=== PATIENT | female | born 1980 | race American Indian/Alaskan Native ===

== ENCOUNTER 2016-12-15 08:55 | Day surgery (SDC) | payer MEDICARE, OTHER ==
[2016-12-11 15:02] VITALS: BMI 28.1
[2016-12-15] MEDS ORDERED: Midazolam 2 MG/2 ML VIAL ONE (12:43)
[2016-12-15] MEDS ORDERED: Absorbable Gelatin Sponge Size 12-7 ONE (12:55)
[2016-12-15] MEDS ORDERED: Propofol 10 mg/ml Inj (20 ML) ONE (12:57)
[2016-12-15] MEDS ORDERED: Lidocaine 2% Inj (20ml) ONE (12:57)
--- NOTE | 2016-12-15 13:11 | CP.SDSHP ---
Same Day Surgery H & P - History Proposed Procedure: US guided renal biopsy. Pre-Op Diagnosis: Lupus - Allergies Allergies: Allergies Iodinated Contrast Media - Oral and Allergy (Intermediate, Verified 12/14/16 10: 48) RASH azithromycin Allergy (Verified 04/08/16 12:08) ITCHING HIVES codeine Allergy (Verified 04/08/16 12:08) ITCHING HIVES ondansetron HCl [From Zofran (as hydrochloride)] Allergy (Verified 04/08/16 12: 08) ITCHING HIVES iv contrast Adverse Reaction (Unknown, Uncoded 04/08/16 12:08) ITCHING DECREASE IN KIDNEY FUNCTION PER PT - Physical Exam Vital Signs: Vital Signs 12/15/16 09:20 Temperature 97.7 F Pulse Rate 73 Respiratory 18 Rate Blood Pressure 163/90 H O2 Sat by Pulse 100 Oximetry Mental Status: Alert & Oriented x3 Neuro: WNL Heart: WNL - Impression Impression: Pt with lupus and renal insufficiency referred for renal biopsy. Plan US guided renal biopsy. Informed consent obtained. Risk of bleeding discussed with the patient. Pt. Evaluated Today:Candidate for Anesthesia & Procedure: Yes (ASA 3 Malampati 3) - Date & Time Date: 12/15/16 Time: 12:45 Short Stay Discharge - Short Stay Discharge Admitting Diagnosis/Reason for Visit: RENAL MASS Disposition: HOME/ ROUTINE
[2016-12-15] MEDS ORDERED: Oxycodone/Acetaminophen 5/325 mg Tab PO PRN (13:13)
--- NOTE | 2016-12-15 13:13 | PCM.SURG1 ---
Surgeon's Initial Post Op Note - Surgeon's Notes Surgeon: Kendell Elliott Furnace Mechanic Helper: NOne Type of Anesthesia: IV Sedation Pre-Operative Diagnosis: SLE Operative Findings: Slightly echogenic right and left kidney. Right kidney suitable for US biopsy. Post-Operative Diagnosis: SLE Operation Performed: US guided core biopsy of the right lower pole. Five 18 g core specimen obtained. Biopsy tract embolized w gelfoam. Specimen/Specimens Removed: 18 g core x 5 Estimated Blood Loss: EBL {In ML}: 0 Blood Products Given: N/A Drains Used: No Drains Post-Op Condition: Fair Date of Surgery/Procedure: 12/15/16 Time of Surgery/Procedure: 13:05
[2016-12-15] MEDS ORDERED: Sodium Chloride 0.9% 500 ML IV ONE (13:26)
[2016-12-15 14:37] VITALS: PULSE 91; RESP 16
--- NOTE | 2016-12-15 14:59 | US ---
PROCEDURE: Date of procedure: 12/15/2046 Procedure: Ultrasound-guided right renal biopsy, CPT 49765 Ultrasound guidance for biopsy, 28521 HISTORY: Systemic lupus and renal insufficiency TECHNIQUE: Following informed consent and procedure time-out, the patient was placed prone on the interventional table and a limited ultrasound showed slightly echogenic right kidney consistent with medical renal disease. There is no hydronephrosis or mass. The intrarenal stone is present measuring 3 millimeters. The patient right back was prepped and draped in the usual sterile fashion. After patient sedated by the anesthesiologist and the skin anesthetized with lidocaine, an 18 gauge core needle was advanced percutaneously towards the lower pole cortex. Upon confirmation of needle position, 5 -18 gauge core specimens were obtained and sent for routine pathology. The biopsy tract was then embolized with Gelfoam. A post biopsy ultrasound showed no hematoma. There were no immediate complications. IMPRESSION: Ultrasound-guided right renal biopsy.
[2016-12-15 15:08] VITALS: BP 155/92; TEMP 97.5; O2SAT 99
== END 2016-12-15 15:15 | disposition home or self-care (01) ==
LOC: C.SPRAD 08:55
PROVIDERS: ATTEND Radiology Vascular & Interventional Radiology
DX: M32.14 Glomerular disease in systemic lupus erythematosus (principal)
CPT/HCPCS: 50200; 76942; 88305; J2250; J3010; J7040

== ENCOUNTER 2017-01-22 10:18 | Inpatient (IN) | payer MEDICARE, OTHER ==
[2017-01-22 10:19] VITALS: BMI 28.1
[2017-01-22] MEDS ORDERED: Sodium Chloride 0.9% 500 ML IV ONE (11:00)
--- NOTE | 2017-01-22 11:06 | C.PDOC ---
History Of Present Illness 36 y/o female, with history c/o pain and swelling to medial aspect of the left thigh. Pt states she has had an abscess in the area for over a week that was drained in emergency department. Patient reports f/u with Dr. Lyon but states area worsened, prompting visit. Denies fever, chills, headache, nausea, vomiting. Time Seen by Provider: 01/22/17 10:44 Chief Complaint (Nursing): Abnormal Skin Integrity History Per: Patient History/Exam Limitations: no limitations Onset/Duration Of Symptoms: Days Current Symptoms Are (Timing): Worse Location Of Injury: Left: Leg Quality Of Symptoms: Painful, Swollen Recent travel outside of the [place]: No Past Medical History Reviewed: Historical Data, Nursing Documentation, Vital Signs Vital Signs: Last Vital Signs Temp 98.2 F 01/25/17 00:00 Pulse 82 01/25/17 00:00 Resp 20 01/25/17 00:00 BP 146/93 H 01/25/17 00:00 Pulse Ox 99 01/25/17 00:00 - Medical History PMH: Anemia, Fractures (ribs), HTN, Hypothyroidism, Kidney Stones, Osteoporosis , Peripheral Edema, Pulmonary Embolism (2007 after hip relacements), Chronic Kidney Disease Surgical History: Endoscopy - [facility] Procedures DRAINAGE OF RECTUM, VIA NATURAL OR ARTIFICIAL OPENING (04/06/16) EXCISION OF RECTUM, VIA NATURAL OR ARTIFICIAL OPENING (04/06/16) EXTRACTION OF BUTTOCK SKIN, EXTERNAL APPROACH (04/06/16) TRANSFER BUTTOCK SKIN, EXTERNAL APPROACH (04/06/16) Family History: States: Unknown Family Hx - Social History Hx Tobacco Use: No Hx Alcohol Use: No Hx Substance Use: No - Immunization History Hx Tetanus Toxoid Vaccination: No Hx Influenza Vaccination: No Hx Pneumococcal Vaccination: No Review Of Systems Except As Marked, All Systems Reviewed And Found Negative. Constitutional: Negative for: Fever, Chills Skin: Positive for: Other (swelling/painful area left inner thigh). Negative for: Rash Neurological: Negative for: Weakness, Numbness Physical Exam - Physical Exam Appears: Non-toxic, No Acute Distress Skin: Warm, Dry Head: Atraumatic, Normacephalic Chest: Symmetrical Cardiovascular: Rhythm Regular Respiratory: Normal Breath Sounds, No Rales, No Rhonchi, No Wheezing Extremity: Normal ROM, Capillary Refill (< 2 sec. ), Other (4 to 6 cm area, round and hard, indurated, with localized tenderness, small incision) Neurological/Psych: Oriented x3, Normal Speech, Normal Cognition, Normal Motor, Normal Sensation ED Course And Treatment - Laboratory Results Result Diagrams: 01/22/17 13:53 01/22/17 13:53 ECG: Interpreted By Me ECG Rhythm: Sinus Rhythm ECG Interpretation: No Acute Changes Rate From EC (BPM) O2 Sat by Pulse Oximetry: 99 (RA) Pulse Ox Interpretation: Normal Medical Decision Making Medical Decision Making: Plan: * EKG * Bloodwork * IVFs * Reassess Progress: Discussed w/ Dr. Lyon, plan to take pt to OR. Disposition Discussed With Dr.: Jomar Avina Doctor Will See Patient In The: Hospital Counseled Patient/Family Regarding: Studies Performed - Disposition Disposition: HOSPITALIZED Disposition Time: 11:04 Condition: GUARDED - Clinical Impression Clinical Impression: Cellulitis, Abscess - Scribe Statement The provider has reviewed the documentation as recorded by the Leti Reilly Provider Carolibe Attestation: All medical record entries made by the Carolibsri were at my direction and personally dictated by me. I have reviewed the chart and agree that the record accurately reflects my personal performance of the history, physical exam, medical decision making, and the department course for this patient. I have also personally directed, reviewed, and agree with the discharge instructions and disposition. Decision To Admit - Pt Status Changed To: Hospital Disposition Of: Inpatient - Admit Certification Admit to Inpatient:: After my assessment, the patient will require hospitalization for at least two midnights. This is because of the severity of symptoms shown, intensity of services needed, and/or the medical risk in this patient being treated as an outpatient. - InPatient: Physician Admission Certification: I certify that this patient requires 2 or more midnights of care for the following reason:: imunocompromised patient with lupus, needs admission for management of celulitis and abscess. - . Bed Request Type: Regular Patient Diagnosis: Cellulitis, Abscess
[2017-01-22 13:57] LABS: BASO % 0.5 % (0.0-2.0); EOS % 0.4 % (0.0-4.0); HEMATOCRIT 37.5 % (34.0-47.0); LYMPH # 2.2 K/uL (1.0-4.3); LYMPH % 25.4 % (20.0-40.0); MEAN CELL VOLUME 82.9 fL (81.0-99.0); MEAN CORPUSCULAR HEMOGLOBIN 25.8 pg (27.0-31.0); MEAN CORPUSCULAR HGB CONC 31.1 g/dL (33.0-37.0); MEAN PLATELET VOLUME 8.6 fL (7.2-11.7); MONO # 1.1 K/uL (0.0-0.8); MONO % 12.3 % (0.0-10.0); NRBC % 0.1 % (0.0-2.0); WHITE BLOOD COUNT 8.6 K/uL (4.8-10.8)
[2017-01-22] MEDS ORDERED: Lactated Ringer's 1,000 ML IV ONE (14:08)
[2017-01-22 14:10] LABS: ALKALINE PHOSPHATASE 48 U/L (38-126); AST/SGOT 35 U/L (14-36); BILIRUBIN,TOTAL 0.5 mg/dL (0.2-1.3); BLOOD UREA NITROGEN 26 mg/dL (7-17); CARBON DIOXIDE 14 mmol/L (22-30); CHLORIDE 114 mmol/L (98-107); GFR AFRICAN-AMERICAN > 60; POTASSIUM 4.2 mmol/L (3.6-5.2); SODIUM 141 mmol/L (132-148); TOTAL PROTEIN 6.4 g/dL (6.3-8.3)
[2017-01-22 14:13] LABS: ALB/GLOB RATIO 0.7 (1.0-2.1); ALT/SGPT 12 U/L (9-52); CALCIUM 7.7 mg/dl (8.6-10.4); GLUCOSE,RANDOM 63 mg/dL (65-105)
[2017-01-22] MEDS ORDERED: HYDROmorphone 0.5 mg/0.5 ml ISec IVP PRN (14:32)
[2017-01-22] MEDS ORDERED: Oxycodone/Acetaminophen 5/325 mg Tab PO PRN (15:09)
--- NOTE | 2017-01-22 15:19 | OP ---
PROCEDURE DATE: 01/22/2017 PREOPERATIVE DIAGNOSES: Infected left groin mass with abscess. POSTOPERATIVE DIAGNOSES: Infected left groin mass with abscess. PROCEDURE PERFORMED: Wide and deep excision of infected left groin mass with drainage of abscess and partial tissue transfer closure. SURGEON: Edgar Lyon MD ANESTHESIA: General. ESTIMATED BLOOD LOSS: 30 mL. POSTOPERATIVE CONDITION: Stable. INDICATIONS FOR SURGERY: This is a 36-year-old female, presents with a recurrent abscess in her left groin and pelvic region, who now will undergo a wide and deep excision of a widely infected mass terry ng with drainage of the abscess underlying. PROCEDURE: The patient taken to the operating room. General anesthesia was administered. She was p laced in lithotomy position. The right groin and thigh and abdominal area were prepped and draped. An elliptical incision was made surrounding the indurated area and the infected mass was excised. Th e underlying pus was drained and cultured. Bleeding was controlled using the Bovie. A bleeding pelv ic blood vessel was repaired. The wound was then irrigated with copious amounts of saline solution, debrided and a partial tissue transfer closure was performed. The central portion of the wound was p acked open with wet saline gauze. The patient tolerated procedure well, returned to recovery room in stable condition. Edgar Lyon MD cc: [id number] TT: 01/22/2017 15:18:50 en
--- NOTE | 2017-01-22 15:19 | CP.PCM.PN ---
Subjective - Date & Time of Evaluation Date of Evaluation: 01/22/17 Time of Evaluation: 16:00 - Subjective Subjective: Medicine Progress Note- Dr. Avina's Service: 36 year old female with PMHx HTN, Hypothyroidism, Kidney Stones, Osteoporosis, Pulmonary Embolism (2006 after hip relacements) admitted today for abscess at medial aspect of the left thigh. Denies chest pain, SOB, fever, chills, headache , nausea, vomiting. Objective - Vital Signs/Intake and Output Vital Signs (last 24 hours): Temp Pulse Resp BP Pulse Ox 98.1 F 104 H 20 130/92 H 100 01/22/17 10:25 01/22/17 12:46 01/22/17 12:46 01/22/17 12:46 01/22/17 12:46 - Medications Medications: Current Medications Enoxaparin Sodium (Lovenox) 30 mg SC DAILY SAHARA Hydromorphone HCl (Dilaudid) 0.5 mg IVP Q15M PRN PRN Reason: Pain, severe (8-10) Stop: 01/22/17 16:32 Ketorolac Tromethamine (Toradol) 30 mg IVP Q6H SAHARA Metoclopramide HCl (Reglan) 10 mg IVP ONCE PRN PRN Reason: Nausea/Vomiting Stop: 01/22/17 16:32 Oxycodone/Acetaminophen (Percocet 5/325 Mg Tab) 2 tab PO Q4H PRN PRN Reason: pain Stop: 01/25/17 15:10 - Labs Labs: 01/22/17 13:53 01/22/17 13:53 - Constitutional Appears: No Acute Distress - Head Exam Head Exam: NORMAL INSPECTION, NORMOCEPHALIC - Eye Exam Eye Exam: EOMI, Normal appearance - ENT Exam ENT Exam: Mucous Membranes Moist - Respiratory Exam Respiratory Exam: Clear to Ausculation Bilateral, NORMAL BREATHING PATTERN - Cardiovascular Exam Cardiovascular Exam: REGULAR RHYTHM, +S1, +S2 - GI/Abdominal Exam GI & Abdominal Exam: Soft. absent: Distended, Tenderness - Extremities Exam Extremities Exam: Full ROM, Normal Inspection - Neurological Exam Neurological Exam: Alert, Awake, Oriented x3 - Psychiatric Exam Psychiatric exam: Normal Affect, Normal Mood - Skin Skin Exam: Erythema Additional comments: swelling area left inner thigh Assessment and Plan (1) Abscess Assessment & Plan: Dr. Lyon consulted- help appreciated. Patient is in the OR at this time. Status: Acute (2) Hypothyroid Assessment & Plan: Synthroid 25 mcg PO daily Status: Acute (3) HTN (hypertension) Assessment & Plan: Lisinopril 2.5 mg PO daily Status: Acute (4) Prophylactic measure Assessment & Plan: Lovenox 30 mg SC daily Pepcid 20 mg PO BID Status: Acute
[2017-01-22] MEDS ORDERED: HYDROmorphone 1 mg/ml ISec ONE ×2 (15:26→15:58)
[2017-01-22] MEDS ORDERED: Lactated Ringer's 1,000 ML IV SCH (15:30)
[2017-01-22] MEDS ORDERED: HYDROmorphone 0.5 mg/0.5 ml ISec IVP ONE ×2 (15:57→15:58)
--- NOTE | 2017-01-22 19:20 | CP.PCM.CON ---
History of Present Illness - History of Present Illness History of Present Illness: 36 y/o female, with history c/o pain and swelling to medial aspect of the left thigh. Pt states she has had an abscess in the left thigh for over a week that was drained in emergency department. Patient reports f/u with Dr. Lyon but states area worsened, prompting visit. Denies fever, chills, headache, nausea, vomiting. - Medical History PMH: Anemia, Fractures (ribs), HTN, Hypothyroidism, Kidney Stones, Osteoporosis , Peripheral Edema, Pulmonary Embolism (2007 after hip relacements), Chronic Kidney Disease Surgical History: Endoscopy Review of Systems - Constitutional Constitutional: As Per HPI - EENT Eyes: absent: As Per HPI, Blind Spots, Blurred Vision, Change in Vision, Decreased Night Vision, Diplopia, Discharge, Dry Eye, Exophthalmos, Floaters, Irritation, Itchy Eyes, Loss of Peripheral Vision, Pain, Photophobia, Requires Corrective Lenses, Sees Flashes, Spots in Vision, Tunnel Vision, Other Visual Disturbances, Loss of Vision, Other Ears: absent: As Per HPI, Decreased Hearing, Ear Discharge, Ear Pain, Tinnitus, Abnormal Hearing, Disequilibrium, Dizziness, Other Nose/Mouth/Throat: absent: As Per HPI, Epistaxis, Nasal Congestion, Nasal Discharge, Nasal Obstruction, Nasal Trauma, Nose Pain, Post Nasal Drip, Sinus Pain, Sinus Pressure, Bleeding Gums, Change in Voice, Dental Pain, Dry Mouth, Dysphagia, Halitosis, Hoarsness, Lip Swelling, Mouth Lesions, Mouth Pain, Odynophagia, Sore Throat, Throat Swelling, Tongue Swelling, Facial Pain, Neck Pain, Neck Mass, Other - Breasts Breasts: absent: As Per HPI, Change in Shape, Mass, Pain, Nipple Discharge, Nipple Inversion, Skin Changes, Swelling, Other - Cardiovascular Cardiovascular: absent: As Per HPI, Acrocyanosis, Chest Pain, Chest Pain at Rest , Chest Pain with Activity, Claudication, Diaphoresis, Dyspnea, Dyspnea on Exertion, Edema, Irregular Heart Rhythm, Pain Radiating to Arm/Neck/Jaw, Leg Edema, Leg Ulcers, Lightheadedness, Orthopnea, Palpitations, Paroxysmal Nocturnal Dyspnea, Pedal Edema, Radiating Pain, Rapid Heart Rate, Slow Heart Rate, Syncope, Other - Respiratory Respiratory: absent: As Per HPI, Cough, Dyspnea, Hemoptysis, Dyspnea on Exertion , Wheezing, Snoring, Stridor, Pain on Inspiration, Chest Congestion, Excessive Mucous Production, Change in Mucous Color, Pain with Coughing, Other - Gastrointestinal Gastrointestinal: absent: As Per HPI, Abdominal Pain, Belching, Bloating, Change in Bowel Habits, Change in Stool Character, Coffee Ground Emesis, Constipation, Cramping, Diarrhea, Dyspepsia, Dysphagia, Early Satiety, Excessive Flatus, Fecal Incontinence, Heartburn, Hematemesis, Hematochezia, Loose Stools, Melena, Nausea, Odynophagia, Temesmus, Vomiting, Other - Genitourinary Genitourinary: absent: As Per HPI, Change in Urinary Stream, Difficulty Urinating, Dysuria, Flank Pain, Hematuria, Pyuria, Nocturia, Urinary Incontinence, Urinary Frequency, Urinary Hesitance, Urinary Urgency, Voiding Freq/Small Amts, Freq UTI, Hx Renal/Bladder Calculi, Hx /Renal Surgery, Bladder Distension, Other - Reproductive: Female Reproductive:Female: absent: As Per HPI, Amenorrhea, Amenorrhea/ Control, Currently Menstual, Cycle <21 Days, Cycle >35 Days, Cycle Variable, Menses 1-7 Days, Menses >/= 8 Days, Menses Variable, Cycle > 4 Weeks Between, No Menses for 6 Months, Heavy Menses, Light Menses, Normal Menses, Spotting Between Cycles , S/P Hysterectomy, Menopausal, Post Menopausal, Premenarche, Abnormal Vaginal Bleeding, Dysmenorrhea, Dyspareunia, Genital Lesions, Genital Pruritis, Pelvic Pain, Prolapse Symptoms, Sexual Dysfunction, Vaginal Discharge, Vaginal Dryness , Vaginal Odor, Vaginal Pruritis, Other - Menstruation Menstruation: absent: As Per HPI, Amenorrhea, Amenorrhea/ Control, Currently Menstual, Cycle <21 Days, Cycle >35 Days, Cycle Variable, Menses 1-7 Days, Menses >/= 8 Days, Menses Variable, Cycle > 4 Weeks Between, No Menses for 6 Months, Heavy Menses, Light Menses, Normal Menses, Spotting Between Cycles , S/P Hysterectomy, Menopausal, Post Menopausal, Premenarche, Abnormal Vaginal Bleeding, Dysmenorrhea, Other - Musculoskeletal Musculoskeletal: As Per HPI - Integumentary Integumentary: As Per HPI. absent: Acne, Alopecia, Bleeding Lesions, Change in Hair, Change in Nails, Change in Pigmentation, Changing Lesions, Dry Skin, Erythema, Furuncle, Hirsutism, Lesions, New Lesions, Non-Healing Lesions, Photosensitivity, Pruritus, Rash, Skin Pain, Skin Ulcer, Sores, Striae, Swelling , Unusual Bruising, Wounds, Jaundice, Other - Neurological Neurological: absent: As Per HPI, Abnormal Gait, Abnormal Hearing, Abnormal Movements, Abnormal Speech, Behavioral Changes, Burning Sensations, Confusion, Convulsions, Disequilibrium, Dizziness, Numbness, Focal Weakness, Frequent Falls , Headaches, Lack of Coordination, Loss of Vision, Memory Loss, Paresthesias, Radicular Pain, Restless Legs, Sensory Deficit, Syncope, Tingling, Tremor, Vertigo, Weakness, Other Visual Disturbances, Other - Psychiatric Psychiatric: absent: As Per HPI, Abnormal Sleep Pattern, Anhedonia, Anxiety, Auditory Hallucinations, Behavioral Changes, Change in Appetite, Change in Libido, Confusion, Depression, Difficulty Concentrating, Hallucinations, Homicidal Ideation, Hopelessness, Irritability, Memory Loss, Mood Swings, Panic Attacks, Paranoia, Suicidal Ideation, Visual Hallucinations, Tactile Hallucinations, Other - Endocrine Endocrine: absent: As Per HPI, Change in Body Appearance, Change in Libido, Cold Intolorance, Deepening of Voice, Excessive Sweating, Fatigue, Flushing, Heat Intolorance, Increase in Ring/Shoe/Hat Size, Palpitations, Polydipsia, Polyphagia, Polyuria, Other - Hematologic/Lymphatic Hematologic: absent: As Per HPI, Easy Bleeding, Easy Bruising, Lymphadenopathy, Other Past Patient History - Infectious Disease Hx of Infectious Diseases: None - Past Medical History & Family History Past Medical History?: Yes - Past Social History Smoking Status: Never Smoked - CARDIAC Hx Hypertension: Yes Hx Peripheral Edema: Yes - PULMONARY Hx Pulmonary Embolism: Yes (2007 after hip relacements) - NEUROLOGICAL Hx Neurological Disorder: No - HEENT Hx HEENT Problems: No - RENAL Hx Chronic Kidney Disease: Yes Hx Kidney Stones: Yes - ENDOCRINE/METABOLIC Hx Hypothyroidism: Yes - HEMATOLOGICAL/ONCOLOGICAL Hx Anemia: Yes - INTEGUMENTARY Hx Dermatological Problems: No - MUSCULOSKELETAL/RHEUMATOLOGICAL Hx Falls: No Hx Fractures: Yes (ribs) Hx Osteoporosis: Yes - GASTROINTESTINAL Hx Gastrointestinal Disorders: Yes Hx Gastroesophageal Reflux: Yes Other/Comment: HX: HIATAL HERNIA - GENITOURINARY/GYNECOLOGICAL Hx Genitourinary Disorders: No - PSYCHIATRIC Hx Substance Use: No - SURGICAL HISTORY Hx Surgeries: Yes Hx Joint Replacement: Yes (Bilateral hip replacement) Other/Comment: HX: 04/08/16-REDRAINAGE OF PELVIC ABSCESS PULSE LAVAGE WITH PARTIAL WOUND CLOSURE OF RECTAL FISTULA. - ANESTHESIA Hx Anesthesia: Yes Hx Anesthesia Reactions: No Hx Malignant Hyperthermia: No Meds Allergies/Adverse Reactions: Allergies Allergy/AdvReac Type Severity Reaction Status Date / Time Iodinated Contrast Media - Allergy Intermediate RASH Verified 01/22/17 10:27 Oral and azithromycin Allergy ITCHING Verified 01/22/17 10:27 codeine Allergy ITCHING Verified 01/22/17 10:27 ondansetron HCl Allergy ITCHING Verified 01/22/17 10:27 [From Zofran (as hydrochloride)] iv contrast AdvReac Unknown ITCHING Uncoded 01/22/17 10:27 - Medications Medications: Current Medications Enoxaparin Sodium (Lovenox) 30 mg SC DAILY [facility] Famotidine (Pepcid) 20 mg PO BID [facility] Last Admin: 01/22/17 17:19 Dose: 20 mg Lactated Ringer's (Lactated Ringer's) 1,000 mls @ 150 mls/hr IV .Q6H40M [facility] Last Admin: 01/22/17 16:30 Dose: Not Given Ketorolac Tromethamine (Toradol) 30 mg IVP Q6H PRN Levothyroxine Sodium (Synthroid) 25 mcg PO DAILY@0630 [facility] Lisinopril (Zestril) 2.5 mg PO DAILY [facility] Oxycodone/Acetaminophen (Percocet 5/325 Mg Tab) 2 tab PO Q4H PRN PRN Reason: pain Stop: 01/25/17 15:10 Physical Exam - Constitutional Appears: Non-toxic, Chronically Ill - Head Exam Head Exam: NORMOCEPHALIC - Eye Exam Eye Exam: PERRL. absent: Scleral icterus - ENT Exam ENT Exam: Mucous Membranes Dry, Normal External Ear Exam - Neck Exam Neck exam: Negative for: Lymphadenopathy - Respiratory Exam Respiratory Exam: Decreased Breath Sounds, Clear to Auscultation Bilateral - Cardiovascular Exam Cardiovascular Exam: REGULAR RHYTHM, +S1, +S2 - GI/Abdominal Exam GI & Abdominal Exam: Diminished Bowel Sounds, Soft. absent: Tenderness - Rectal Exam Rectal Exam: Deferred - Exam Exam: NORMAL INSPECTION - Extremities Exam Extremities exam: Negative for: calf tenderness, pedal edema - Back Exam Back exam: absent: CVA tenderness (L), CVA tenderness (R) - Neurological Exam Neurological exam: Alert, CN II-XII Intact, Oriented x3, Reflexes Normal - Psychiatric Exam Psychiatric exam: Normal Affect, Normal Mood - Skin Skin Exam: Dry Additional comments: left inner thigh swelling pain redness warmth Results - Vital Signs Recent Vital Signs: Last Vital Signs Temp 97.5 F L 01/22/17 16:15 Pulse 105 H 01/22/17 16:15 Resp 21 01/22/17 16:15 BP 135/76 01/22/17 16:15 Pulse Ox 95 01/22/17 16:15 - Labs Result Diagrams: 01/22/17 13:53 01/22/17 13:53 Labs: Laboratory Results - last 24 hr 01/22/17 01/22/17 01/22/17 13:53 13:53 13:53 WBC 8.6 RBC 4.53 Hgb 11.7 Hct 37.5 MCV 82.9 MCH 25.8 L MCHC 31.1 L RDW 16.0 H Plt Count 259 MPV 8.6 Neut % (Auto) 61.4 Lymph % (Auto) 25.4 Foard % (Auto) 12.3 H Eos % (Auto) 0.4 Baso % (Auto) 0.5 Neut # 5.3 Lymph # 2.2 Foard # 1.1 H Eos # 0.0 Baso # 0.0 Sodium 141 Potassium 4.2 Chloride 114 H Carbon Dioxide 14 L Anion Gap 17 BUN 26 H Creatinine 1.1 Est GFR ( Amer) > 60 Est GFR (Non-Af Amer) 57 Random Glucose 63 L Calcium 7.7 L Total Bilirubin 0.5 AST 35 ALT 12 Alkaline Phosphatase 48 Total Protein 6.4 Albumin 2.7 L Globulin 3.7 Albumin/Globulin Ratio 0.7 L Urine HCG, Qual Negative Assessment & Plan (1) Abscess Status: Acute (2) Cellulitis Status: Acute (3) HTN (hypertension) Status: Acute (4) Hypothyroid Status: Acute (5) Lupus nephritis Status: Acute - Assessment and Plan (Free Text) Assessment: cellulitis abscess HX Lupus/ nephritis Immunocompromised add clinda await cultures
[2017-01-22] MEDS ORDERED: Clindamycin 600mg/50ml D5W 600 MG/50 ML VIAL IVPB SCH (20:00)
[2017-01-23] MEDS: Levothyroxine 25 MCG TAB PO SCH (06:05)
[2017-01-23] MEDS ORDERED: Lactated Ringer's 1,000 ML IV ONE ×2 (10:44)
[2017-01-23] MEDS: Enoxaparin 30 mg Syringe SC SCH ×2 (11:01→15:04)
[2017-01-23] MEDS ORDERED: Lidocaine 1% Inj (20ml) ONE (11:05)
[2017-01-23] MEDS ORDERED: Bupivacaine HCl 0.25% PF (10 ml) Inj ONE (11:05)
[2017-01-23] MEDS: ceFAZolin IV 2 gm in Dextrose 1 GM/50 ML BAG IVPB ONE ×2 (11:06→11:35)
[2017-01-23] MEDS ORDERED: HYDROmorphone 0.5 mg/0.5 ml ISec IVP PRN (11:21)
[2017-01-23] MEDS ORDERED: Propofol 10 mg/ml Inj (20 ML) ONE (11:26)
[2017-01-23] MEDS ORDERED: Midazolam 2 MG/2 ML VIAL ONE (11:26)
[2017-01-23] MEDS ORDERED: HYDROmorphone 1 mg/ml ISec ONE ×2 (12:10→12:22)
[2017-01-23] MEDS ORDERED: HYDROmorphone 0.5 mg/0.5 ml ISec IVP ONE (12:21)
--- NOTE | 2017-01-23 14:15 | OP ---
PROCEDURE DATE: 01/23/2017 PREOPERATIVE DIAGNOSIS: Left groin and pelvic abscess. POSTOPERATIVE DIAGNOSIS: Left groin and pelvic abscess. PROCEDURE PERFORMED: Change of packing with debridement, re-drainage of pelvic and groin abscess. SURGEON: Edgar Lyon MD. ANESTHESIA: General. ESTIMATED BLOOD LOSS: 30 mL. POSTOPERATIVE CONDITION: Stable. INDICATIONS FOR SURGERY: This is a 36-year-old female with a recurrent abscess of her left groin and pelvic region, taken to the OR yesterday for an I and D. Found to have a deep abscess extending prox imally to the pelvic area. She underwent a drainage, debridement and packing. The packing is to be changed in the OR today under sedation with re-cleansing of the wound. GROSS FINDINGS: Residual collections were drained. There was a fair amount of bleeding when the pac john was removed and this was controlled. PROCEDURE: The patient taken to the operating room and IV sedation was administered. She was placed in lithotomy position and the left groin area was prepped and draped. The previous packing had been removed and there was a fair amount of vigorous bleeding secondary to this. This was controlled wit h pressure and an exposed pelvic blood vessel was repaired. The wound was then pulse irrigated with saline and Kantrex solution after debridement and re-drainage. It was packed open with wet saline ga uze. The patient tolerated procedure well. Returned to recovery room in stable condition. Edgar Lyon MD cc: [id number] TT: 01/23/2017 14:14:18 danuta
[2017-01-23 16:34] VITALS: RESP 20
[2017-01-24] MEDS: Levothyroxine 25 MCG TAB PO SCH (05:34)
[2017-01-24] MEDS: Enoxaparin 30 mg Syringe SC SCH (09:10)
--- NOTE | 2017-01-24 17:04 | CP.PCM.PN ---
Subjective - Date & Time of Evaluation Date of Evaluation: 01/24/17 Time of Evaluation: 08:00 - Subjective Subjective: CULTURE + MORGANELLA IV CEFEPIME ORDERED Objective - Vital Signs/Intake and Output Vital Signs (last 24 hours): Temp Pulse Resp BP Pulse Ox 99.2 F 100 H 20 135/93 H 99 01/24/17 08:00 01/24/17 08:00 01/24/17 08:00 01/24/17 08:00 01/24/17 08:00 Intake and Output: 01/24/17 01/24/17 06:59 18:59 Intake Total 500 700 Balance 500 700 - Medications Medications: Current Medications Acetaminophen (Tylenol 325mg Tab) 650 mg PO Q6 PRN PRN Reason: Pain, moderate (4-7) Stop: 01/26/17 23:59 Last Admin: 01/24/17 12:55 Dose: 650 mg Clindamycin HCl (Cleocin) 300 mg PO Q6 [facility] Enoxaparin Sodium (Lovenox) 30 mg SC DAILY [facility] Last Admin: 01/24/17 09:10 Dose: 30 mg Famotidine (Pepcid) 20 mg PO BID [facility] Last Admin: 01/24/17 09:10 Dose: 20 mg Hydromorphone HCl (Dilaudid) 0.5 mg IVP Q10M PRN PRN Reason: Pain, severe (8-10) Last Admin: 01/23/17 12:10 Dose: 0.5 mg Hydroxychloroquine Sulfate (Plaquenil) 200 mg PO BID [facility] Last Admin: 01/24/17 11:09 Dose: 200 mg Cefepime HCl (Maxipime Iv 1 Gm Premix) 1 gm in 50 mls @ 100 mls/hr IVPB Q12H [facility] Levothyroxine Sodium (Synthroid) 25 mcg PO DAILY@0630 [facility] Last Admin: 01/24/17 05:34 Dose: 25 mcg Lisinopril (Zestril) 2.5 mg PO DAILY [facility] Last Admin: 01/24/17 09:11 Dose: 2.5 mg Oxycodone/Acetaminophen (Percocet 5/325 Mg Tab) 2 tab PO Q4H PRN PRN Reason: pain Stop: 01/25/17 15:10 Prednisone (Prednisone Tab) 20 mg PO DAILY [facility] Last Admin: 01/24/17 14:06 Dose: 20 mg Tacrolimus (Prograf Cap) 2 mg PO Q12 [facility] Last Admin: 01/24/17 09:11 Dose: 2 mg Zolpidem Tartrate (Ambien) 5 mg PO HS PRN PRN Reason: Insomnia Last Admin: 01/24/17 00:20 Dose: 5 mg - Labs Labs: 01/22/17 13:53 01/22/17 13:53 - Constitutional Appears: Non-toxic, Chronically Ill - Head Exam Head Exam: NORMOCEPHALIC - Eye Exam Eye Exam: PERRL. absent: Scleral icterus - ENT Exam ENT Exam: Mucous Membranes Dry - Neck Exam Neck Exam: absent: Lymphadenopathy - Respiratory Exam Respiratory Exam: Decreased Breath Sounds, Rhonchi - Cardiovascular Exam Cardiovascular Exam: REGULAR RHYTHM - GI/Abdominal Exam GI & Abdominal Exam: Distended, Soft - Exam Exam: NORMAL INSPECTION - Extremities Exam Extremities Exam: absent: Pedal Edema - Back Exam Back Exam: absent: CVA tenderness (L), CVA tenderness (R) - Neurological Exam Neurological Exam: Alert, Awake, Oriented x3 - Psychiatric Exam Psychiatric exam: Normal Mood - Skin Skin Exam: Dry Assessment and Plan (1) Abscess Status: Acute (2) Cellulitis Status: Acute (3) HTN (hypertension) Status: Acute (4) Hypothyroid Status: Acute (5) Lupus nephritis Status: Acute
[2017-01-24] MEDS ORDERED: Cefepime IV 1 gm in Dextrose 1 GM/50 ML BAG IVPB SCH (18:00)
[2017-01-24] MEDS: Cefpodoxime (Vantin) 200 mg Tab PO SCH (21:30)
[2017-01-25] MEDS: Levothyroxine 25 MCG TAB PO SCH (05:55)
[2017-01-25] MEDS: Enoxaparin 30 mg Syringe SC SCH (10:45)
[2017-01-25] MEDS: Cefpodoxime (Vantin) 200 mg Tab PO SCH ×2 (10:45→22:18)
[2017-01-25] MEDS: Pantoprazole 40 mg EC Tab PO SCH (11:15)
--- NOTE | 2017-01-25 12:56 | CP.PCM.PN ---
Subjective - Date & Time of Evaluation Date of Evaluation: 01/25/17 Time of Evaluation: 09:00 - Subjective Subjective: tolerating PO Vantin rx in progress Objective - Vital Signs/Intake and Output Vital Signs (last 24 hours): Temp Pulse Resp BP Pulse Ox 98.4 F 103 H 20 142/96 H 98 01/25/17 09:02 01/25/17 09:02 01/25/17 09:02 01/25/17 09:02 01/25/17 09:02 - Medications Medications: Current Medications Acetaminophen (Tylenol 325mg Tab) 650 mg PO Q6 PRN PRN Reason: Pain, moderate (4-7) Stop: 01/26/17 23:59 Last Admin: 01/25/17 06:35 Dose: 650 mg Cefpodoxime Proxetil (Vantin) 400 mg PO Q12 [facility] Last Admin: 01/25/17 10:45 Dose: 400 mg Enoxaparin Sodium (Lovenox) 30 mg SC DAILY [facility] Last Admin: 01/25/17 10:45 Dose: 30 mg Hydromorphone HCl (Dilaudid) 0.5 mg IVP Q10M PRN PRN Reason: Pain, severe (8-10) Last Admin: 01/23/17 12:10 Dose: 0.5 mg Hydroxychloroquine Sulfate (Plaquenil) 200 mg PO BID [facility] Last Admin: 01/25/17 10:46 Dose: 200 mg Ketorolac Tromethamine (Toradol) 30 mg IVP Q6 PRN PRN Reason: Pain, moderate (4-7) Levothyroxine Sodium (Synthroid) 25 mcg PO DAILY@0630 [facility] Last Admin: 01/25/17 05:55 Dose: 25 mcg Lisinopril (Zestril) 5 mg PO DAILY [facility] Last Admin: 01/25/17 10:52 Dose: 5 mg Mupirocin (Bactroban Ointment) 1 gm TOP BID [facility] Last Admin: 01/25/17 11:08 Dose: 1 applic Oxycodone/Acetaminophen (Percocet 5/325 Mg Tab) 2 tab PO Q4H PRN PRN Reason: pain Stop: 01/25/17 15:10 Pantoprazole Sodium (Protonix Ec Tab) 40 mg PO DAILY [facility] Last Admin: 01/25/17 11:15 Dose: 40 mg Prednisone (Prednisone Tab) 20 mg PO DAILY [facility] Last Admin: 01/25/17 10:46 Dose: 20 mg Tacrolimus (Prograf Cap) 2 mg PO Q12 [facility] Last Admin: 01/25/17 10:46 Dose: 2 mg Zolpidem Tartrate (Ambien) 5 mg PO HS PRN PRN Reason: Insomnia Last Admin: 01/24/17 23:10 Dose: 5 mg - Labs Labs: 01/22/17 13:53 01/22/17 13:53 - Constitutional Appears: Non-toxic, Chronically Ill - Head Exam Head Exam: NORMOCEPHALIC - Eye Exam Eye Exam: PERRL. absent: Scleral icterus - ENT Exam ENT Exam: Mucous Membranes Dry, Normal External Ear Exam - Neck Exam Neck Exam: absent: Lymphadenopathy - Cardiovascular Exam Cardiovascular Exam: REGULAR RHYTHM - GI/Abdominal Exam GI & Abdominal Exam: Distended, Soft - Rectal Exam Rectal Exam: Deferred - Exam Exam: NORMAL INSPECTION Assessment and Plan (1) Abscess Status: Acute (2) Cellulitis Status: Acute (3) HTN (hypertension) Status: Acute (4) Hypothyroid Status: Acute (5) Lupus nephritis Status: Acute - Assessment and Plan (Free Text) Assessment: d/c on po vantin
[2017-01-25 13:05] LABS: MONO # 0.8 K/uL (0.0-0.8); NRBC % 0.3 % (0.0-2.0)
--- NOTE | 2017-01-25 13:18 | CP.PCM.PN ---
Subjective - Date & Time of Evaluation Date of Evaluation: 01/25/17 Time of Evaluation: 08:00 - Subjective Subjective: Medicine Progress Note- Dr. Avina's Service: Patient seen and examined at bedside this AM. Patient reports pain at surgical site. She is POD #3 for I&D of left inner thigh abscess. Patient had debridement the following day. No fevers, chills, nausea, vomiting reported. Patient cleared for discharge as per ID and surgeon Dr. Lyon. Patient will need wound care nurse as per Dr. Lyon. Objective - Vital Signs/Intake and Output Vital Signs (last 24 hours): Temp Pulse Resp BP Pulse Ox 98.4 F 103 H 20 142/96 H 98 01/25/17 09:02 01/25/17 09:02 01/25/17 09:02 01/25/17 09:02 01/25/17 09:02 - Medications Medications: Current Medications Acetaminophen (Tylenol 325mg Tab) 650 mg PO Q6 PRN PRN Reason: Pain, moderate (4-7) Stop: 01/26/17 23:59 Last Admin: 01/25/17 06:35 Dose: 650 mg Cefpodoxime Proxetil (Vantin) 400 mg PO Q12 [facility] Last Admin: 01/25/17 10:45 Dose: 400 mg Enoxaparin Sodium (Lovenox) 30 mg SC DAILY [facility] Last Admin: 01/25/17 10:45 Dose: 30 mg Hydromorphone HCl (Dilaudid) 0.5 mg IVP Q10M PRN PRN Reason: Pain, severe (8-10) Last Admin: 01/23/17 12:10 Dose: 0.5 mg Hydroxychloroquine Sulfate (Plaquenil) 200 mg PO BID [facility] Last Admin: 01/25/17 10:46 Dose: 200 mg Ketorolac Tromethamine (Toradol) 30 mg IVP Q6 PRN PRN Reason: Pain, moderate (4-7) Levothyroxine Sodium (Synthroid) 25 mcg PO DAILY@0630 [facility] Last Admin: 01/25/17 05:55 Dose: 25 mcg Lisinopril (Zestril) 5 mg PO DAILY [facility] Last Admin: 01/25/17 10:52 Dose: 5 mg Mupirocin (Bactroban Ointment) 1 gm TOP BID [facility] Last Admin: 01/25/17 11:08 Dose: 1 applic Oxycodone/Acetaminophen (Percocet 5/325 Mg Tab) 2 tab PO Q4H PRN PRN Reason: pain Stop: 01/25/17 15:10 Pantoprazole Sodium (Protonix Ec Tab) 40 mg PO DAILY [facility] Last Admin: 01/25/17 11:15 Dose: 40 mg Prednisone (Prednisone Tab) 20 mg PO DAILY [facility] Last Admin: 01/25/17 10:46 Dose: 20 mg Tacrolimus (Prograf Cap) 2 mg PO Q12 [facility] Last Admin: 01/25/17 10:46 Dose: 2 mg Zolpidem Tartrate (Ambien) 5 mg PO HS PRN PRN Reason: Insomnia Last Admin: 01/24/17 23:10 Dose: 5 mg - Labs Labs: 01/22/17 13:53 01/25/17 12:53 - Constitutional Appears: No Acute Distress - Head Exam Head Exam: NORMAL INSPECTION, NORMOCEPHALIC - Eye Exam Eye Exam: EOMI, Normal appearance - ENT Exam ENT Exam: Mucous Membranes Moist - Neck Exam Neck Exam: Full ROM, Normal Inspection - Respiratory Exam Respiratory Exam: Clear to Ausculation Bilateral, NORMAL BREATHING PATTERN - Cardiovascular Exam Cardiovascular Exam: REGULAR RHYTHM, +S1, +S2 - GI/Abdominal Exam GI & Abdominal Exam: Soft. absent: Distended, Tenderness - Extremities Exam Extremities Exam: Full ROM Additional comments: +left inner thigh wound with c/d/i dressing over it - Back Exam Back Exam: NORMAL INSPECTION - Neurological Exam Neurological Exam: Alert, Awake, Oriented x3 - Psychiatric Exam Psychiatric exam: Normal Affect, Normal Mood - Skin Skin Exam: Normal Color, Warm Assessment and Plan - Assessment and Plan (Free Text) Assessment: (1) Abscess Assessment & Plan: Dr. Lyon consulted- help appreciated. Patient is POD 3 s/p I&D of abscess. Wound Cx positive for Moganella. ID on case. Patient will need Vantin (Cefpodoxime) 400 mg every 12 hours for 6 more days starting next dose tonight 01/25/17. Rx given for Toradol 10 mg PO every 6 hours as needed for severe pain. Patient instructed not take Toradol for more than 5 days since it can affect her kidneys. Patient does not wish to be prescribed narcotics for short term pain control. Wound care nurse to visit with wound care instructions as per Dr. Lyon. Patient cleared for discharge as per surgery and ID teams. Status: Acute (2) Hypothyroid Assessment & Plan: Continue home med Synthroid 25 mcg PO daily Status: Acute (3) HTN (hypertension) Assessment & Plan: Continue home med Lisinopril 10 mg PO daily Status: Acute (4) Prophylactic measure Assessment & Plan: Lovenox 30 mg SC daily Pepcid 20 mg PO BID Discharge planning as per Dr. Avina.
[2017-01-25 13:26] LABS: BASO # 0.1 K/uL (0.0-0.2); BASO % 0.7 % (0.0-2.0); EOS % 0.5 % (0.0-4.0); LYMPH # 2.4 K/uL (1.0-4.3); LYMPH % 23.8 % (20.0-40.0); MEAN CELL VOLUME 82.6 fL (81.0-99.0); MEAN CORPUSCULAR HEMOGLOBIN 26.1 pg (27.0-31.0); MEAN CORPUSCULAR HGB CONC 31.6 g/dL (33.0-37.0); MEAN PLATELET VOLUME 9.4 fL (7.2-11.7); MONO % 8.4 % (0.0-10.0); RED CELL DISTRIBUTION WIDTH 15.9 % (11.5-14.5); WHITE BLOOD COUNT 9.9 K/uL (4.8-10.8)
[2017-01-26] MEDS: Levothyroxine 25 MCG TAB PO SCH (05:32)
[2017-01-26 07:41] VITALS: BP 148/94; PULSE 91; TEMP 98; O2SAT 98
[2017-01-26] MEDS: Enoxaparin 30 mg Syringe SC SCH (09:22)
[2017-01-26] MEDS: Cefpodoxime (Vantin) 200 mg Tab PO SCH (09:24)
[2017-01-26] MEDS: Pantoprazole 40 mg EC Tab PO SCH (09:24)
--- NOTE | 2017-01-26 11:21 | CP.PCM.PN ---
Subjective - Date & Time of Evaluation Date of Evaluation: 01/26/17 Time of Evaluation: 11:00 - Subjective Subjective: Medicine Progress Note Patient seen and examined. Patient has no acute complaints. She is scheduled for discharge today. Objective - Vital Signs/Intake and Output Vital Signs (last 24 hours): Temp Pulse Resp BP Pulse Ox 98 F 91 H 20 148/94 H 98 01/26/17 10:45 01/26/17 07:40 01/26/17 07:40 01/26/17 07:40 01/26/17 07:40 Intake and Output: 01/26/17 01/26/17 06:59 18:59 Intake Total 300 Balance 300 - Medications Medications: Current Medications Acetaminophen (Tylenol 325mg Tab) 650 mg PO Q6 PRN PRN Reason: Pain, moderate (4-7) Stop: 01/26/17 23:59 Last Admin: 01/26/17 10:45 Dose: 650 mg Cefpodoxime Proxetil (Vantin) 400 mg PO Q12 [facility] Last Admin: 01/26/17 09:24 Dose: 400 mg Enoxaparin Sodium (Lovenox) 30 mg SC DAILY [facility] Last Admin: 01/26/17 09:22 Dose: 30 mg Hydroxychloroquine Sulfate (Plaquenil) 200 mg PO BID [facility] Last Admin: 01/26/17 09:24 Dose: 200 mg Ketorolac Tromethamine (Toradol) 30 mg IVP Q6 PRN PRN Reason: Pain, moderate (4-7) Levothyroxine Sodium (Synthroid) 25 mcg PO DAILY@0630 [facility] Last Admin: 01/26/17 05:32 Dose: 25 mcg Lisinopril (Zestril) 10 mg PO DAILY [facility] Mupirocin (Bactroban Ointment) 1 gm TOP BID [facility] Last Admin: 01/26/17 09:25 Dose: 1 applic Pantoprazole Sodium (Protonix Ec Tab) 40 mg PO DAILY [facility] Last Admin: 01/26/17 09:24 Dose: 40 mg Prednisone (Prednisone Tab) 20 mg PO DAILY [facility] Last Admin: 01/26/17 09:24 Dose: 20 mg Tacrolimus (Prograf Cap) 2 mg PO Q12 [facility] Last Admin: 01/26/17 09:24 Dose: 2 mg Zolpidem Tartrate (Ambien) 5 mg PO HS PRN PRN Reason: Insomnia Last Admin: 01/25/17 21:40 Dose: 5 mg - Labs Labs: 01/25/17 12:53 01/25/17 12:53 - Additional Findings Additional findings: - Constitutional Appears: No Acute Distress - Head Exam Head Exam: NORMAL INSPECTION, NORMOCEPHALIC - Eye Exam Eye Exam: EOMI, Normal appearance - ENT Exam ENT Exam: Mucous Membranes Moist - Neck Exam Neck Exam: Full ROM, Normal Inspection - Respiratory Exam Respiratory Exam: Clear to Ausculation Bilateral, NORMAL BREATHING PATTERN - Cardiovascular Exam Cardiovascular Exam: REGULAR RHYTHM, +S1, +S2 - GI/Abdominal Exam GI & Abdominal Exam: Soft. absent: Distended, Tenderness - Extremities Exam Extremities Exam: Full ROM Additional comments: +left inner thigh wound with c/d/i dressing over it - Back Exam Back Exam: NORMAL INSPECTION - Neurological Exam Neurological Exam: Alert, Awake, Oriented x3 - Psychiatric Exam Psychiatric exam: Normal Affect, Normal Mood - Skin Skin Exam: Normal Color, Warm Assessment and Plan - Assessment and Plan (Free Text) Assessment: (1) Abscess Assessment & Plan: Dr. Lyon consulted- help appreciated. Patient is POD 3 s/p I&D of abscess. Wound Cx positive for Moganella. ID on case. Patient will need Vantin (Cefpodoxime) 400 mg every 12 hours for 6 more days starting next dose tonight 01/25/17. Rx given for Toradol 10 mg PO every 6 hours as needed for severe pain. Patient instructed not take Toradol for more than 5 days since it can affect her kidneys. Patient does not wish to be prescribed narcotics for short term pain control. Wound care nurse to visit with wound care instructions as per Dr. Lyon. Patient cleared for discharge as per surgery and ID teams. Status: Acute (2) Hypothyroid Assessment & Plan: Continue home med Synthroid 25 mcg PO daily Status: Acute (3) HTN (hypertension) Assessment & Plan: Continue home med Lisinopril 10 mg PO daily Status: Acute (4) Prophylactic measure Assessment & Plan: Lovenox 30 mg SC daily Pepcid 20 mg PO BID Discharge planning as per Dr. Avina.
--- NOTE | 2017-01-27 09:06 | CARD ---
APPROVED REPORT EKG Measurement Heart [id number] <Conclusion> Sinus rhythm with premature atrial complexes in a pattern of bigeminy Otherwise normal ECG
--- NOTE | 2017-02-19 11:20 | HP ---
The patient has history of nonhealing wound infection. The patient came to the hospital, advis ed admission. The patient with lupus. The patient with kidney transplant. PHYSICAL EXAMINATION: GENERAL: The patient is awake, alert, oriented. VITAL SIGNS: Temperature 98, pulse 90. HEENT: Within normal limits. NECK: Supple. CHEST: Symmetrical. HEART: Regular. ABDOMEN: Soft. EXTREMITIES: swelling ulcer on the legs. The patient suffers from nonhealing wound. Placed on IV antibiotic, supportive care. Jomar Iraheta MD cc: [id number] TT: 02/19/2017 07:53:16 en
--- NOTE | 2017-02-19 11:20 | DS ---
The patient admitted to the hospital with chief complaint of nonhealing wound. The patient placed on bedrest, IV antibiotic, supportive care. Jomar Iraheta MD cc: [id number] TT: 02/19/2017 10:16:39 en
== END 2017-01-26 14:25 | disposition home or self-care (01) | DRG 575 ==
LOC: C.ER 10:18 → C.3T 11:05
PROVIDERS: ADMIT Internal Medicine Pulmonary Disease; ATTEND Internal Medicine Pulmonary Disease
PROC: 0HXJXZZ Transfer Left Upper Leg Skin, External Approach (ICD-10-PCS; 2017-01-22)
PROC: 0HBJXZZ Excision of Left Upper Leg Skin, External Approach (ICD-10-PCS; principal; 2017-01-22 15:45)
PROC: 0HDJXZZ Extraction of Left Upper Leg Skin, External Approach (ICD-10-PCS; 2017-01-23)
PROC: 2W0 Placement, Anatomical Regions, Change (ICD-10-PCS; 2017-01-23)
PROC: 0H9JXZZ Drainage of Left Upper Leg Skin, External Approach (ICD-10-PCS; 2017-01-23)
DX: L03.116 Cellulitis of left lower limb (principal); M32.14 Glomerular disease in systemic lupus erythematosus; I12.9 Hypertensive chronic kidney disease with stage 1 through stage 4 chronic kidney disease, or unspecified chronic kidney disease; D64.9 Anemia, unspecified; E03.9 Hypothyroidism, unspecified; M81.0 Age-related osteoporosis without current pathological fracture; N18.9 Chronic kidney disease, unspecified; Z96.643 Presence of artificial hip joint, bilateral; Z86.711 Personal history of pulmonary embolism; K21.9 Gastro-esophageal reflux disease without esophagitis; B96.89 Other specified bacterial agents as the cause of diseases classified elsewhere